=== PATIENT | male | born 1940 | race Two or more races ===

== ENCOUNTER → 2024-08-06 | Outpatient (BNVA) | payer MEDICARE, MEDICAID, SELFPAY | END | disposition home or self-care (01) | PROVIDERS: PCP Physician Assistant; Referring Provider Physician Assistant; Visit Provider Urology | DX: D41.4 Neoplasm of uncertain behavior of bladder (principal); N35.812 Other bulbous urethral stricture, male; N40.1 Benign prostatic hyperplasia with lower urinary tract symptoms; N13.8 Other obstructive and reflux uropathy; I10 Essential (primary) hypertension; E78.00 Pure hypercholesterolemia, unspecified | CPT/HCPCS: 52214; 81003; 96372; 99212; A4217; A4649; C1894; J3260; A9270; G0463 ==

== ENCOUNTER 2024-09-15 12:44 | Emergency (ER) | payer MEDICARE, MEDICAID, SELFPAY ==
[2024-09-15 13:03] VITALS: BP 106/61; PULSE 56; RESP 19; TEMP 36.9; O2SAT 98; BMI 20.3
--- NOTE | 2024-09-15 13:46 | EDNOTE_ITS ---
ED Male Genitalurinary RME/HPI General Chief complaint: Urogenital-Male Stated complaint: PAIN TO SHARP PER FAMILY Time Seen by Provider: 09/15/24 13:26 Source: family (son) Arrival date/time: 09/15/24 12:44 Limitations: language barrier RME / HPI RME / HPI Narrative: Pt is 84 yo male with indwelling sharp catheter in place following hernia repair surgery x 2 weeks ago. Denies hematuria. Endorses urethral discomfort and cloudy urine output. Sharp last changed yesterday. Denies fever, chills, abdominal pain, nausea, vomiting, rash. Related Data Home Medications ?Medication ?Instructions ?Recorded ?Confirmed lisinopril 40 mg tablet 40 mg PO QDAY 06/20/20 09/23/24 pravastatin 10 mg tablet 10 mg PO DAILY 06/20/20 09/23/24 tamsulosin 0.4 mg capsule 0.4 mg PO QHS 07/25/22 09/23/24 omeprazole 20 mg capsule,delayed 20 mg PO DAILY 01/24/23 09/23/24 release finasteride 5 mg tablet (Proscar) 5 mg PO QDAY 08/06/24 09/23/24 Previous Rx's ?Medication ?Instructions ?Recorded bisacodyl 5 mg tablet,delayed 5 mg PO QDAY PRN constipation #30 09/04/24 release (Gentle Laxative tabs (bisacodyl)) Allergies Allergy/AdvReac Type Severity Reaction Status Date / Time No Known Allergies Allergy Verified 09/23/24 09:09 Review of Systems Constitutional Constitutional: Denies chills and Denies excessive sweating Cardiovascular Cardiovascular: Denies chest pain, Denies dyspnea and Denies leg edema Respiratory Respiratory: Denies cough and Denies dyspnea Gastrointestinal Gastrointestinal: Denies abdominal pain, Denies change in stool character, Denies nausea and Denies vomiting Genitourinary Genitourinary: Reports dysuria, Denies flank pain, Denies hematuria, Denies oliguria, Denies testicular pain and Reports other (Reports urethral discomfort. ) Musculoskeletal Musculoskeletal: Denies back pain and Denies myalgias Integumentary/Breasts Skin/Breast: Denies rash Endocrine Endocrine: Denies excessive sweating Past Medical History Past Medical History NEUROLOGIC: Negative Neurological Disorders or Seizures CARDIAC: Positive Cardiac Disorders, Hypercholesterolemia and Hypertension; Negative Congestive Heart Failure RESPIRATORY: Positive Asthma; Negative Chronic Obstructive Pulmonary Disease (COPD) GASTROINTESTINAL: Positive Gastrointestinal Disorders GENITOURINARY: Positive Benign Prostatic Hyperplasia; Negative Renal Disease MUSCULOSKELETAL: Positive Arthritis ENT: Positive Cataracts ENDOCRINE: Negative Diabetes Mellitus Type 1 or Diabetes Mellitus Type 2 HEMATOLOGIC: Negative Sickle Cell Disease OTHER HISTORY: Negative Blood Transfusions or Anesthesia Reactions Family History FAMILY HISTORY: Positive Family Cardiac Disorders Surgical History SURGICAL: Positive Eye Surgery and Abdominal Surgery Social History SMOKING STATUS: Never smoker SUBSTANCE USE: does not use ED Exam General Limitations: Present language barrier General appearance: Present alert and in no apparent distress Head Head exam: Present atraumatic and normocephalic Eye Eye exam: Present normal appearance and EOMI ENT ENT exam: Present mucous membranes moist Neck Neck exam: Present normal inspection and full ROM Chest Chest inspection: Present normal inspection and symmetric chest wall rise Respiratory Respiratory exam: Absent respiratory distress Cardiovascular Cardiovascular exam: Present regular rate and +S1 Abdominal Exam Abdominal exam: Present soft and normal bowel sounds; Absent distention, te nderness, guarding or rigidity exam: Present normal testicular lie; Absent testicular tenderness, urethral discharge or scrotal swelling Expanded Exam exam: Present other (sharp catheter in place with bag with approximately 100cc clear, yellow output. ); Absent penile swelling or erythema Extremities Exam Extremities exam: Present normal inspection Back Exam Back exam: Present normal inspection and full ROM; Absent CVA tenderness (R) or CVA tenderness (L) Neurological Exam Neurological exam: Present alert Psychiatric Psychiatric exam: Present normal affect Skin Skin exam: Present warm and dry Course Quality Measures none Orders Category Date Time Status Sharp [Urinary Catheter, Remove] ONCE Care 09/15/24 13:46 Completed Sharp [Urinary Catheter] QS Care 09/15/24 13:46 Completed UA, C/S IF [Urinalysis, C/S if Indicated] Stat Lab 09/15/24 15:30 Completed Urine Culture Stat Lab 09/15/24 15:30 Completed Trimethoprim/Sulfa 160/800 Ds [Bactrim Ds] Med 09/15/24 16:16 Discontinued 1 tab PO X1 ONE Vital Signs Vital signs: Vital Signs Temperature 98.5 F 09/15/24 13:03 Pulse Rate 56 L 09/15/24 13:03 Respiratory Rate 19 09/15/24 13:03 Blood Pressure 106/61 09/15/24 13:03 Pulse Oximetry (%) 98 09/15/24 13:03 Oxygen Delivery Method Room Air 09/15/24 13:03 Pulse ox 98% on room air, within normal limits. Urogenital - Male MDM Narrative MDM Narrative:: 84-year-old male brought in by son for evaluation of urethral discomfort in the setting of indwelling Sharp catheter. Vital signs reassuring. No abdominal discomfort on exam and no overlying abdominal skin changes so less concern for surgical site infection at this time. No urethral discharge on examination and no urethral erythema with clear yellow output in Sharp catheter bag. Urine sample was obtained which was consistent with cystitis, for which the patient was started on Bactrim. Ultimately the patient was discharged with plan to follow-up with primary care in the next 2 to 3 days for reevaluation and pending cystogram. Patient and son vocalized understanding of plan and were advised to come back to the ED if his symptoms worsen or change. Patient data External records reviewed:: [facility] previous records Clinical information provided by:: patient and family (Son.) Social determinants that could affect healthcare access:: none Patient has the following chronic illnesses:: Recent emergent surgery of incarcerated inguinal hernia. How is presenting disease/condition affected by chronic disease/condition?: exacerbated by Evaluation data The following diagnostics were reviewed and interpreted by me:: lab results Lab and/or radiology exams considered but not ordered:: Bladder ultrasound considered not ordered. Interpretation Summary: Urinalysis significant for urinary tract infection. Medications / Prescriptions Medications or Prescriptions considered but not ordered:: Rx given. Medication administrations:: Medication Administration History Discontinued Medications Trimethoprim/Sulfamethoxazole (Trimethoprim/Sulfa 160/800 Ds Tablet) 1 tab PO X1 ONE Stop: 09/15/24 16:17 Last Admin: 09/15/24 16:23 Dose: 1 tab Documented By: DD Rx given. Consultations Consultation(s) initiated? (list below): No Diagnosis Urogenital Male Differential Diagnosis: urinary tract infection, urethritis, epididymitis, prostatitis and acute retention of urine Most likely diagnosis given after review of the tests above:: UTI. Admission Indicated Admission indicated?: not indicated Admission Request Was there a request for admission?: No Disposition Plan Disposition Plan: Discharge Discharge Attestation Discharge Attestation: The patient and all family members were given an opportunity to ask questions and understood the discharge instructions. Discharge instructions specifically effects, indications for sooner follow up or return to the emergency department, and the expected course of current diagnosis. Patient condition: Stable Discharge Plan Plan Patient Disposition: HOME (Self Care) Disposition Comment: stable Prescriptions/Referrals Prescriptions/Med Rec: No Action tamsulosin 0.4 mg capsule 0.4 mg PO QHS finasteride [Proscar] 5 mg tablet 5 mg PO QDAY pravastatin 10 mg Tablet 10 mg PO DAILY lisinopril 40 mg Tablet 40 mg PO QDAY omeprazole 20 mg capsule,delayed release(DR/EC) 20 mg PO DAILY Patient Comments: take 1 capsule by mouth once daily 30 MINUTES BEFORE MORNING MEAL bisacodyl [Gentle Laxative (bisacodyl)] 5 mg tablet,delayed release (DR/EC) 5 mg PO QDAY PRN (Reason: constipation) Qty: 30 0RF Problem List Clinical Impression: Complication of Sharp catheter, Acute UTI Patient/Caregiver Discharge Instructions Other Activity Instructions:: Follow-up with primary care in the next 2 to 3 days for reevaluation and possible repeat labs. Take Bactrim as prescribed twice daily for the next x 7 days for urinary tract infection. Continue to care for Sharp as prescribed. Return to the ED if symptoms worsen or change. Education Materials: ED Bladder Infection, Male (Adult) Print Language: Mauritanian Stand Alone Forms: Vashti Award Info., Patient Portal Info Letter PA/DILIA Supervising Physician PEYMAN/DILIA Supervising Physician: Dr. Rico
[2024-09-15 15:34] LABS: Collection Type, Urine Catheter; Squamous Epithelial Cell,Urine 0 /hpf (0-5)
[2024-09-15 15:51] LABS: Bacteria,Urine 4+; Bilirubin,Urine Negative (Negative); Blood,Urine 2+ (Negative); Clarity,Urine Turbid (Clear/Hazy); Color,Urine Lt-Yellow (Lt Yel-Yel); Glucose, Urine Negative (Negative); Ketones,Urine Negative (Negative); Leukocyte Esterase,Urine Positive (Negative); Nitrite,Urine Positive (Negative); PH,Urine 6.5 (5.0-7.0); Protein,Urine Trace (Neg - Trace); RBC,Urine 6 /hpf (0-3); Specific Gravity,Urine 1.004 (1.001-1.035); Urobilinogen,Urine Negative mg/dL (0.0-1.0); WBC,Urine 290 /hpf (0-5)
[2024-09-15 16:00] LABS: Culture Indicated,Urine Yes
[2024-09-15] MEDS: TRIMETHOPRIM/SULFA 160/800 DS TABLET 1 TAB PO (16:23)
[2024-09-15 16:38] VITALS: BP 128/82; PULSE 92; RESP 20; TEMP 36.9; O2SAT 97
== END 2024-09-15 16:40 | disposition home or self-care (01) ==
LOC: SERX 16:29
PROVIDERS: Physician Assistant; Emergency Provider Emergency Medicine; PCP Physician Assistant; Referring Provider Emergency Medicine
DX: T83.511A Infection and inflammatory reaction due to indwelling urethral catheter, initial encounter (principal); N39.0 Urinary tract infection, site not specified; Y84.6 Urinary catheterization as the cause of abnormal reaction of the patient, or of later complication, without mention of misadventure at the time of the procedure
CPT/HCPCS: 51702; 81001; 87077; 87086; 87186; 99283; A9270

== ENCOUNTER 2024-09-18 13:47 | Outpatient (AMB) | payer MEDICARE, MEDICAID, SELFPAY ==
--- NOTE | 2024-09-18 14:24 | PD.GSCLVISIT ---
Vital Signs - [facility] 09/18/24 14:25 Height 1.6 m Height Method Stated Weight 55.934 kg Weight Measurement Method Standing Scale BMI 21.8 BP 119/65 Blood Pressure Source Automatic Cuff Blood Pressure Location Right Upper Arm Position Sitting Respiration 16 Pulse 59 L Pulse Source Monitor Temp 97.0 F Temp Source Temporal Artery Scan Pulse Oximetry (%) 96 Oxygen Delivery Method Room Air Med/Allergies Allergies & Medications Allergies No Known Allergies Allergy (Verified 09/18/24 14:28) Medication Reconciliation lisinopril 40 mg tablet 40 mg PO QDAY 06/20/20 [History Confirmed 09/18/24] pravastatin 10 mg tablet 10 mg PO DAILY 06/20/20 [History Confirmed 09/18/24] tamsulosin 0.4 mg capsule 0.4 mg PO QHS 07/25/22 [History Confirmed 09/18/24] omeprazole 20 mg capsule,delayed release 20 mg PO DAILY 01/24/23 [History Confirmed 09/18/24] finasteride 5 mg tablet (Proscar) 5 mg PO QDAY 08/06/24 [History Confirmed 09/18/24] bisacodyl 5 mg tablet,delayed release (Gentle Laxative (bisacodyl)) 5 mg PO QDAY PRN constipation #30 tabs 09/04/24 [Rx Confirmed 09/18/24] sulfamethoxazole 800 mg-trimethoprim 160 mg tablet (Bactrim DS) 1 tab PO BID UTI 7 days #14 tabs 09/15/24 [Rx Confirmed 09/18/24] [place] Intake Visit Data Collection New Patient or Established: Established Patient (seen at [facility] within 3 years) Reason for Visit:: post op hernia repair PCP or OBGYN visit in last 3 months: Yes Smoking Status Smoking Status: Never smoker Immunization / Flu Flu Vaccine in the Last 12 Months: No Flu Vaccine Exclusion Criteria: No Exclusion Criteria Past Medical History Past Medical History NEUROLOGIC: Negative Neurological Disorders or Seizures CARDIAC: Positive Cardiac Disorders, Hypercholesterolemia and Hypertension; Negative Congestive Heart Failure RESPIRATORY: Positive Asthma; Negative Chronic Obstructive Pulmonary Disease (COPD) GASTROINTESTINAL: Positive Gastrointestinal Disorders GENITOURINARY: Positive Benign Prostatic Hyperplasia; Negative Renal Disease MUSCULOSKELETAL: Positive Arthritis ENT: Positive Cataracts ENDOCRINE: Negative Diabetes Mellitus Type 1 or Diabetes Mellitus Type 2 HEMATOLOGIC: Negative Sickle Cell Disease OTHER HISTORY: Negative Blood Transfusions or Anesthesia Reactions Family History FAMILY HISTORY: Positive Family Cardiac Disorders Surgical History SURGICAL: Positive Eye Surgery and Abdominal Surgery Social History SMOKING STATUS: Smoking status: Never smoker ALCOHOL: Alcohol Intake: Former HOUSING: Housing: House LIVES WITH: Lives With: Children, Family and Spouse HPI HPI Narrative 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 Pt reports feeling well overall with minimal pain at the area; he went to ER a few days ago due to concern for UTI and was prescribed bactrim, but has not yet undergone cystogram. He denies any other complaints ROS Review of Systems Systems Reviewed: All systems reviewed, normal except as documented Objective/Exam General General Appearance: alert, cooperative and well groomed Resp Respiratory exam: Absent respiratory distress exam: Present other (left inguinal incision c/d/i, no erythema, no fluctuance or tenderness; jenna removed today) Results Pathology of hernia sac consistent with hernia sac Assessment & Plan Diagnosis / Problem List (1) Inguinal hernia with incarceration: Status: Acute Assessment & Plan: 84M s/p emergent repair of incarcerated inguinal hernia with repair of cystotomy 09/02, recovering well Plan: F/u cystogram, if normal will remove sharp JESUS Orders: Orders XR cystogram min 3V Today Advanced Care Planning Advance care planning discussed with:: patient and child Office Procedures GNS Level of Care Nursing/Assessment Patient Status: Established Patient Nursing Assessment/Reassesment: Medication Reconciliation, Update PMH in EMR and Vital Signs Coordination of Care: Complex Care and Chronic Disease 1-5, Education Complex Pt/Fam, Consent,records obtained, informed consent, 1 Ins Authorization, Lab and Imaging orders, Results/Orders obtained and Staff clarify orders Established Patient Charge Established Patient Point Assignment: 125 Established Patient Point Charge: EP Level 4 (120-155) Patient Portal Questionaires Social History Living Situation History Housing: House Housing Other:: Pt lives with , dtr, and dtr's family Tobacco History Smoking Status: Never smoker Alcohol History Alcohol Intake: Former Review of Systems Report any current symptoms Only answer those that you have currently: Past Medical History Past Medical History Have you ever been diagnosed with any of the following: Neurological Problems Seizures: No Cardiology Problems Hypercholesterolemia: Yes Congestive Heart Failure: No Hypertension: Yes Respiratory Problems Chronic Obstructive Pulmonary Disease (COPD): No Asthma: Yes Genital/Urinary Problems Renal Disease: No Benign Prostatic Hyperplasia: Yes Musculoskeletal Problems Arthritis: Yes Head,Eye,Nose,Throat Problems Cataracts: Yes Endocrine Problems Diabetes Mellitus Type 1: No Diabetes Mellitus Type 2: No Blood Problems Sickle Cell Disease: No Other Problems Blood Transfusions: No Anesthesia Reactions: No
[2024-09-18 14:25] VITALS: BP 119/65; PULSE 59; RESP 16; TEMP 36.1; O2SAT 96; BMI 21.8
== END 2024-09-18 14:50 | disposition home or self-care (01) ==
LOC: HODSRG 13:47
PROVIDERS: PCP Physician Assistant; Referring Provider Physician Assistant; Supervising Provider Surgery; Visit Provider Surgery
DX: Z48.815 Encounter for surgical aftercare following surgery on the digestive system (principal)
CPT/HCPCS: 99214; G0463

== ENCOUNTER → 2024-09-18 | Outpatient (CLI) | payer MEDICARE, MEDICAID, SELFPAY ==
--- NOTE | 2024-09-18 15:36 | XR_ITS ---
Examination: Cystogram with KUB Fluoroscopy 13 spot fluoroscopic films of the bladder Exam date and time: September 18, 2024 1535 hrs. Indications: History pelvic surgery, history sigmoid colon partially incarcerated within left inguinal hernia, patient is postop Technique and findings: Under fluoroscopic guidance patient received 150 cc Cystografin 13 spot fluoroscopic films of the bladder obtained Bladder appears intact No ureteral reflux Radiation dose 26.47 milligray Impression: Intact urinary bladder
== END | disposition home or self-care (01) ==
PROVIDERS: PCP Physician Assistant; Referring Provider Surgery; Visit Provider Surgery
DX: Z98.890 Other specified postprocedural states (principal)
CPT/HCPCS: 51600; 74430; Q9958

== ENCOUNTER 2024-09-23 09:01 | Outpatient (AMB) | payer MEDICARE, MEDICAID, SELFPAY ==
[2024-09-23 09:09] VITALS: BP 123/72; PULSE 58; RESP 19; TEMP 35.8; O2SAT 97; BMI 20.9
--- NOTE | 2024-09-23 09:09 | PD.GSCLVISIT ---
Vital Signs - [facility] 09/23/24 09:09 Height 1.6 m Height Method Stated Weight 53.524 kg Weight Measurement Method Standing Scale BMI 20.9 BP 123/72 Blood Pressure Source Automatic Cuff Blood Pressure Location Right Upper Arm Position Sitting Respiration 19 Pulse 58 L Pulse Source Monitor Temp 96.4 F L Temp Source Temporal Artery Scan Pulse Oximetry (%) 97 Oxygen Delivery Method Room Air Med/Allergies Allergies & Medications Allergies No Known Allergies Allergy (Verified 09/23/24 09:09) Medication Reconciliation lisinopril 40 mg tablet 40 mg PO QDAY 06/20/20 [History Confirmed 09/23/24] pravastatin 10 mg tablet 10 mg PO DAILY 06/20/20 [History Confirmed 09/23/24] tamsulosin 0.4 mg capsule 0.4 mg PO QHS 07/25/22 [History Confirmed 09/23/24] omeprazole 20 mg capsule,delayed release 20 mg PO DAILY 01/24/23 [History Confirmed 09/23/24] finasteride 5 mg tablet (Proscar) 5 mg PO QDAY 08/06/24 [History Confirmed 09/23/24] bisacodyl 5 mg tablet,delayed release (Gentle Laxative (bisacodyl)) 5 mg PO QDAY PRN constipation #30 tabs 09/04/24 [Rx Confirmed 09/23/24] [place] Intake Visit Data Collection New Patient or Established: Established Patient (seen at [facility] within 3 years) Seen by Clinical Staff ONLY (RN/MA): No Reason for Visit:: FOLLOW UP Pain Present Currently: No Application Architect Manager Required: No PCP or OBGYN visit in last 3 months: Yes Hx Now: No Do You Feel Safe at Home: Yes Authorities Contacted: N/A Smoking Status Smoking Status: Never smoker Immunization / Flu Flu Vaccine in the Last 12 Months: Yes Flu Vaccine Exclusion Criteria: Already Received Past Medical History Past Medical History NEUROLOGIC: Negative Neurological Disorders or Seizures CARDIAC: Positive Cardiac Disorders, Hypercholesterolemia and Hypertension; Negative Congestive Heart Failure RESPIRATORY: Positive Asthma; Negative Chronic Obstructive Pulmonary Disease (COPD) GASTROINTESTINAL: Positive Gastrointestinal Disorders GENITOURINARY: Positive Benign Prostatic Hyperplasia; Negative Renal Disease MUSCULOSKELETAL: Positive Arthritis ENT: Positive Cataracts ENDOCRINE: Negative Diabetes Mellitus Type 1 or Diabetes Mellitus Type 2 HEMATOLOGIC: Negative Sickle Cell Disease OTHER HISTORY: Negative Blood Transfusions or Anesthesia Reactions Family History FAMILY HISTORY: Positive Family Cardiac Disorders Surgical History SURGICAL: Positive Eye Surgery and Abdominal Surgery Social History SMOKING STATUS: Smoking status: Never smoker ALCOHOL: Alcohol Intake: Former HOUSING: Housing: House LIVES WITH: Lives With: Children, Family and Spouse HPI HPI Narrative 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 Pt reports he feels a bulge inferior to his left inguinal incision, it is not generally bothersome but uncomfortable when pressure is applied. He also has a known right inguinal hernia which is occasionally bothersome ROS Review of Systems Systems Reviewed: All systems reviewed, normal except as documented Objective/Exam General General Appearance: alert, cooperative and well groomed Resp Respiratory exam: Absent respiratory distress exam: Present other (left inguinal incision c/d/i, no erythema, no fluctuance or tenderness. swelling inferomedial to incision which does not change with cough, is minimally tender, no erythema. reducible right inguinal hernia) Assessment & Plan Diagnosis / Problem List (1) Inguinal hernia with incarceration: Status: Acute Assessment & Plan: 84M who presented with an incarcerated inguinal hernia s/p emergent repair, complicated by cystotomy 09/02 here for sharp removal as cystogram demonstrated intact urinary bladder. I cautioned pt that if he is unable to urinate within 8 hours and/or if he feels suprapubic discomfort he may need the sharp replaced temporarily. I also advised that if he would like to have the right inguinal hernia repaired, and if he does have a recurrence on the left side it would be best managed by laparoscopic/robotic repair as a repeat open repair confers a higher risk of bleeding, infection and injury to nearby structures; in addition, minimally invasive repair would allow repair of the right side as well. I gave the name of a surgeon in [place] who performs these surgeries and encouraged pt seek referral as he wishes Advanced Care Planning Advance care planning discussed with:: patient Office Procedures GNS Level of Care Nursing/Assessment Patient Status: Established Patient Nursing Assessment/Reassesment: Medication Reconciliation, Update PMH in EMR and Vital Signs Coordination of Care: Complex Care and Chronic Disease 1-5, Education Complex Pt/Fam, Consent,records obtained, informed consent, Results/Orders obtained and Staff clarify orders Established Patient Charge Established Patient Point Assignment: 95 Established Patient Point Charge: EP Level 3 (05-115) Patient Portal Questionaires Social History Living Situation History Housing: House Housing Other:: Pt lives with , dtr, and dtr's family Tobacco History Smoking Status: Never smoker Alcohol History Alcohol Intake: Former Domestic Abuse History Do You Feel Safe at Home: Yes Review of Systems Report any current symptoms Only answer those that you have currently: Past Medical History Past Medical History Have you ever been diagnosed with any of the following: Neurological Problems Seizures: No Cardiology Problems Hypercholesterolemia: Yes Congestive Heart Failure: No Hypertension: Yes Respiratory Problems Chronic Obstructive Pulmonary Disease (COPD): No Asthma: Yes Genital/Urinary Problems Renal Disease: No Benign Prostatic Hyperplasia: Yes Musculoskeletal Problems Arthritis: Yes Head,Eye,Nose,Throat Problems Cataracts: Yes Endocrine Problems Diabetes Mellitus Type 1: No Diabetes Mellitus Type 2: No Blood Problems Sickle Cell Disease: No Other Problems Blood Transfusions: No Anesthesia Reactions: No
== END 2024-09-23 09:28 | disposition home or self-care (01) ==
LOC: HODSRG 09:01
PROVIDERS: PCP Physician Assistant; Referring Provider Physician Assistant; Supervising Provider Surgery; Visit Provider Surgery
DX: Z48.815 Encounter for surgical aftercare following surgery on the digestive system (principal); Z46.6 Encounter for fitting and adjustment of urinary device
CPT/HCPCS: 99213; G0463

== ENCOUNTER → 2024-11-01 | Outpatient (BNVA) | payer MEDICARE, MEDICAID, SELFPAY | END | disposition home or self-care (01) | PROVIDERS: PCP Physician Assistant; Referring Provider Physician Assistant; Visit Provider Urology | DX: N40.1 Benign prostatic hyperplasia with lower urinary tract symptoms (principal); N13.8 Other obstructive and reflux uropathy; I10 Essential (primary) hypertension; E78.00 Pure hypercholesterolemia, unspecified | CPT/HCPCS: 76872; 81003 ==

== ENCOUNTER → 2025-03-07 | Outpatient (BNVA) | payer MEDICARE, MEDICAID, SELFPAY | END | disposition home or self-care (01) | PROVIDERS: PCP Physician Assistant; Referring Provider Physician Assistant; Visit Provider Urology | DX: N40.1 Benign prostatic hyperplasia with lower urinary tract symptoms (principal); N13.8 Other obstructive and reflux uropathy; E11.9 Type 2 diabetes mellitus without complications; I10 Essential (primary) hypertension; K40.90 Unilateral inguinal hernia, without obstruction or gangrene, not specified as recurrent; E78.00 Pure hypercholesterolemia, unspecified | CPT/HCPCS: 81003; 99212; 99213; G0463 ==

== ENCOUNTER → 2025-04-18 | Outpatient (CLI) | payer MEDICARE, MEDICAID, SELFPAY ==
[2025-04-18 13:34] LABS: Basophils % (Auto) 1 % (0-2.5); Eosinophils # (Auto) 0.1 Thou/mm3 (0.0-0.5); Eosinophils % (Auto) 3 % (0-10); Hematocrit 39.1 % (41.0-53.0); Hemoglobin 13.4 g/dL (13.5-16.0); Immature Granulocytes % (Auto) 0 % (0-0); Immature Granulocytes Auto 0.01 Thou/mm3 (0.00-0.00); Lymphocytes # (Auto) 1.1 Thou/mm3 (1.0-4.8); Lymphocytes % (Auto) 25 % (10-50); Mean Corpuscular HGB Conc 34.3 g/dl (31.0-37.0); Mean Corpuscular Hemoglobin 31.5 pg (25.0-35.0); Mean Corpuscular Volume 92 fL (80-100); Monocytes # (Auto) 0.4 Thou/mm3 (0.0-0.8); Monocytes % (Auto) 9 % (0-12); Neutrophils # (Auto) 2.8 Thou/mm3 (1.8-7.7); Neutrophils % (Auto) 62 % (37-80); Nucleated Red Blood Cell % 0 /100 WBC (0); Platelet Count 300 Thou/mm3 (140-440); RDW Standard Deviation 43.1 fL (35.1-43.9); Red Blood Count 4.25 Miln/mm3 (4.50-5.90); White Blood Count 4.5 Thou/mm3 (3.8-10.6)
[2025-04-18 13:42] LABS: INR 1.1 (0.9-1.3); Partial Thromboplastin Time 27.3 Seconds (22.0-36.0); Prothrombin Time 11.9 Seconds (9.0-12.2)
[2025-04-18 13:55] LABS: Anion Gap 7 (7-16); BUN/Creatinine Ratio 25 Ratio (12-20); Blood Urea Nitrogen 20 mg/dL (9-23); Calcium 9.1 mg/dL (8.3-10.6); Carbon Dioxide 27.8 mMol/L (20.0-31.0); Chloride 105 mMol/L (98-107); Creatinine (Component) 0.8 mg/dL (0.6-1.3); Glucose 111 mg/dL (74-106); Osmolality,Calculated 283 (275-295); Potassium 4.3 mMol/L (3.4-5.1); Sodium 140 mMol/L (136-145); eGFR > 60 See Note
== END | disposition home or self-care (01) ==
LOC: COPL 12:15
PROVIDERS: PCP Physician Assistant; Referring Provider Internal Medicine; Visit Provider Internal Medicine
DX: I25.10 Atherosclerotic heart disease of native coronary artery without angina pectoris (principal); I48.91 Unspecified atrial fibrillation
CPT/HCPCS: 36415; 80048; 85025; 85610; 85730

== ENCOUNTER → 2025-09-15 | Outpatient (CLI) | payer MEDICARE, MEDICAID, SELFPAY ==
[2025-09-15 10:39] LABS: Basophils # (Auto) 0.0 Thou/mm3 (0.0-0.2); Basophils % (Auto) 1 % (0-2.5); Eosinophils # (Auto) 0.2 Thou/mm3 (0.0-0.5); Eosinophils % (Auto) 3 % (0-10); Hematocrit 44.3 % (41.0-53.0); Hemoglobin 14.8 g/dL (13.5-16.0); Immature Granulocytes Auto 0.01 Thou/mm3 (0.00-0.00); Lymphocytes # (Auto) 1.4 Thou/mm3 (1.0-4.8); Lymphocytes % (Auto) 30 % (10-50); Mean Corpuscular HGB Conc 33.4 g/dl (31.0-37.0); Mean Corpuscular Hemoglobin 30.5 pg (25.0-35.0); Mean Corpuscular Volume 91 fL (80-100); Monocytes # (Auto) 0.4 Thou/mm3 (0.0-0.8); Monocytes % (Auto) 8 % (0-12); Neutrophils # (Auto) 2.7 Thou/mm3 (1.8-7.7); Neutrophils % (Auto) 58 % (37-80); Nucleated Red Blood Cell # 0.00 Thou/mm3 (0.00-0.00); Nucleated Red Blood Cell % 0 /100 WBC (0); Platelet Count 305 Thou/mm3 (140-440); RDW Standard Deviation 43.4 fL (35.1-43.9); Red Blood Count 4.86 Miln/mm3 (4.50-5.90); White Blood Count 4.6 Thou/mm3 (3.8-10.6)
[2025-09-15 10:40] LABS: Anion Gap 8 (7-16); BUN/Creatinine Ratio 18 Ratio (12-20); Blood Urea Nitrogen 16 mg/dL (9-23); Calcium 9.7 mg/dL (8.3-10.6); Carbon Dioxide 29.6 mMol/L (20.0-31.0); Chloride 104 mMol/L (98-107); Creatinine (Component) 0.9 mg/dL (0.6-1.3); Glucose 109 mg/dL (74-106); Osmolality,Calculated 285 (275-295); Potassium 4.1 mMol/L (3.4-5.1); Sodium 142 mMol/L (136-145); eGFR > 60 See Note
[2025-09-15 10:41] LABS: INR 1.0 (0.9-1.3); Partial Thromboplastin Time 27.6 Seconds (22.0-36.0); Prothrombin Time 11.0 Seconds (9.0-12.2)
== END | disposition home or self-care (01) ==
PROVIDERS: PCP Internal Medicine; Referring Provider Internal Medicine; Visit Provider Internal Medicine
DX: I25.10 Atherosclerotic heart disease of native coronary artery without angina pectoris (principal); I48.91 Unspecified atrial fibrillation
CPT/HCPCS: 36415; 80048; 85025; 85610; 85730